=== PATIENT | female | born 1965 | race Caucasian/White ===

== ENCOUNTER 2018-12-27 20:51 | Emergency (ER) | payer BC, OTHER ==
[~2018-12-27 20:51] MED LIST: ISOVUE-370 76%-LOCM 1 ML ONE
--- NOTE | 2018-12-27 21:21 | RAD ---
FEXAM: 2 views right femur PROVIDED CLINICAL HISTORY: Pain FINDINGS: There is no evidence for fracture or other acute osseous abnormality. Alignment appears anatomic. Araceli nt spaces appear preserved. IMPRESSION: No evidence for an acute osseous abnormality. If there is persistent clinical concern, conservative m anagement and follow-up imaging advised.
--- NOTE | 2018-12-27 21:22 | RAD ---
FEXAM: Left hand radiographs 3 views PROVIDED CLINICAL HISTORY: Pain FINDINGS: There is no evidence for fracture or other acute osseous abnormality. Alignment appears anatomic. Araceli nt spaces appear preserved. IMPRESSION: No evidence for an acute osseous abnormality. If there is persistent clinical concern, conservative m anagement and follow-up imaging advised.
--- NOTE | 2018-12-27 21:38 | CT ---
FExam: CT brain PROVIDED CLINICAL HISTORY: Head injury COMPARISON: None FINDINGS: The ventricular system is normal in size and morphology. No evidence for intracranial hemorrhage or mass effect. Right frontal scalp swelling. The extracranial soft tissues and osseous structures demon strate an otherwise unremarkable CT appearance. IMPRESSION: No evidence for intracranial hemorrhage or mass effect.
--- NOTE | 2018-12-27 21:40 | CT ---
FEXAM: CT facial bones without contrast PROVIDED CLINICAL HISTORY: Injury COMPARISON: None FINDINGS: Right frontal scalp swelling without evidence for fracture. Globes and orbital contents appear normal . Paranasal sinuses appear clear. IMPRESSION: No evidence for fracture.
--- NOTE | 2018-12-27 21:41 | CT ---
FEXAM: CT cervical spine PROVIDED CLINICAL HISTORY: Trauma COMPARISON: None FINDINGS: No evidence for fracture or traumatic subluxation. No prevertebral soft tissue swelling apparent. Vi sualized lung apices appear clear. IMPRESSION: No evidence for fracture or traumatic subluxation.
[2018-12-27 21:42] LABS: #Basophils 0.1 thou/uL (0.0-0.2); #Eosinphils 0.2 thou/uL (0.0-0.7); #Lymphocytes 1.7 thou/uL (1.20-3.40); #Monocytes 0.5 thou/uL (0.11-0.59); %Basophils 1.1 % (0.0-1.0); %Eosinophils 1.7 % (0.0-10.0); %Lymphocytes 17.4 % (21.0-51.0); %Monocytes 5.5 % (0.0-10.0); %Neutrophils 74.3 % (42.0-75.0); Hemoglobin 13.8 g/dL (12.0-16.0); Mean Corpuscular HGB CONC 32.9 g/dL (32.0-36.0); Mean Corpuscular Hemoglobin 32.7 pg (27.0-31.0); Mean Corpuscular Volume 99.4 fL (78.0-98.0); Mean Platelet Volume 8.1 fL (7.4-10.4); Platelet Count 213 thou/uL (130-400); Red Blood Cell (RBC) Count 4.21 mill/uL (4.20-5.40); White Blood Cell (WBC) Count 9.5 thou/uL (4.8-10.8)
--- NOTE | 2018-12-27 21:46 | CT ---
FEXAM: CT chest, abdomen and pelvis with IV contrast PROVIDED CLINICAL HISTORY: Trauma FINDINGS: The heart, pericardium and great vessels demonstrate no evidence for traumatic abnormality. Lungs are free of significant opacity. No pleural fluid or pneumothorax apparent. The solid abdominal organs demonstrate no evidence for traumatic abnormality. No bowel dilatation, in flammatory fat stranding, free fluid or free air apparent. The major vascular structures appear negro l. The osseous structures demonstrate no acute abnormality. Thoracic and lumbar spine sagittal and coron al reconstructions demonstrate sagittal normal spinal alignment and maintenance of vertebral body hei ghts. Thoracolumbar scoliosis and spinal and pelvic postoperative change noted. IMPRESSION: No evidence for traumatic abnormality.
[2018-12-27 21:55] LABS: Acetaminophen Less than 6.0 mcg/mL (10.0-30.0); Alcohol Less than 10 mg/dL (Less than 10); Salicylate Less than 8.0 mg/dL (15.0-30.0)
[2018-12-27 21:56] LABS: ALT (SGPT) 24 U/L (8-55); AST (SGOT) 38 U/L (5-34); Albumin 4.7 g/dL (3.5-5.0); Alkaline Phosphatase 85 U/L (40-150); Anion Gap 11 mmol/L (10-20); BUN (Urea Nitrogen) 16 mg/dL (9.8-20.1); Bilirubin, Total 0.4 mg/dL (0.2-1.2); Calc. Creatinine Clearance 0 mL/min (70-130); Calcium 9.6 mg/dL (7.8-10.44); Carbon Dioxide 28 mmol/L (22-29); Chloride 103 mmol/L (98-107); Estimated GFR-MDRD 67; Globulin 2.6 g/dL (2.4-3.5); Glucose 105 mg/dL (70-105); Potassium 3.9 mmol/L (3.5-5.1); Protein, Total 7.3 g/dL (6.0-8.3); Sodium 138 mmol/L (136-145)
== END 2018-12-27 22:56 | disposition home or self-care (01) ==
LOC: ERS 20:51
DX: S00.03XA Contusion of scalp, initial encounter (principal); S60.212A Contusion of left wrist, initial encounter; S00.83XA Contusion of other part of head, initial encounter; S70.311A Abrasion, right thigh, initial encounter; V80.010A Animal-rider injured by fall from or being thrown from horse in noncollision accident, initial encounter
CPT/HCPCS: 70450; 70486; 71260; 72125; 74177; 80053; 80307; 85025; Q9966

== ENCOUNTER 2021-10-31 16:48 | Emergency (ER) | payer BC, OTHER | END 2021-10-31 18:36 | disposition home or self-care (01) | LOC: ERS 16:48 | DX: S09.90XA Unspecified injury of head, initial encounter (principal); M54.2 Cervicalgia; V43.52XA Car driver injured in collision with other type car in traffic accident, initial encounter | CPT/HCPCS: 70450; 71045; 72125; 94760 ==

== ENCOUNTER 2022-04-06 13:48 | Outpatient (CLI) | payer BC | END 2022-04-06 13:49 | disposition home or self-care (01) | LOC: SCSMRI 13:48 | PROVIDERS: ATTEND Nurse Practitioner Family | DX: M50.122 Cervical disc disorder at C5-C6 level with radiculopathy (principal); M50.123 Cervical disc disorder at C6-C7 level with radiculopathy; M41.9 Scoliosis, unspecified; M43.24 Fusion of spine, thoracic region | CPT/HCPCS: 72040; 72141; 72146 ==